=== PATIENT | female | born 1945 | race American Indian/Alaskan Native ===

== ENCOUNTER 2018-07-08 14:25 | Inpatient (IN) | payer MEDICARE, BC ==
[2018-07-08 14:34] VITALS: BMI 36.3
--- NOTE | 2018-07-08 15:11 | ED PDOC ---
Arrival/HPI <Tracy Truong - Last Filed: 07/08/18 16:56> - History of Present Illness Narrative History of Present Illness (Text): 07/08/18 15:41 73 y/o F with PMHx of HTN, pre-DM, lumbar degeneration presents to ED with complaints of L facial weakness, L lip numbness and associated L toe tingling that has been persistent since 2 days ago. She reports she was at home when she noticed a pinching in her L breast and subsequent facial involvement. She did not visit any ED or doctor when she noticed the symptoms. She reports she presented to ED today as she noticed L numbness had not improved, and she was drooling from the L side of her mouth when washing her mouth. She reports she hit her head on a cabinet about 4 days ago when standing, but denies any falls or other trauma to her head. She denies LOC. She denies taking any blood thinners. She took a baby aspirin this am. She denies fevers, chills, headache, dizziness, syncope, chest pain, palpitations, SOB, n/v/c/d/dysuria. Cardio: Dr. Carlin PMD: Dr. Ling Time/Duration: Prior to Arrival Symptom Onset: Gradual Symptom Course: Unchanged <Michelle Lu - Last Filed: 07/10/18 13:22> - General Chief Complaint: Weakness/Neurological Deficit Past Medical History - Provider Review Nursing Documentation Reviewed: Yes - Infectious Disease Hx of Infectious Diseases: None - Reproductive Menopause: Yes - Cardiac Hx Hypertension: Yes - Pulmonary Hx Respiratory Disorders: No - Neurological Hx Neurological Disorder: No - HEENT Hx HEENT Disorder: Yes Hx Glaucoma: Yes (MILD IN LEFT EYE) - Renal Hx Renal Disorder: No - Endocrine/Metabolic Hx Endocrine Disorders: No - Hematological/Oncological Hx Blood Disorders: No - Integumentary Hx Dermatological Disorder: No - Musculoskeletal/Rheumatological Hx Musculoskeletal Disorders: Yes (PLANTAR FASCITIS) - Gastrointestinal Hx Gastrointestinal Disorders: Yes - Genitourinary/Gynecological Hx Genitourinary Disorders: No - Psychiatric Hx Psychophysiologic Disorder: No Hx Substance Use: No - Anesthesia Hx Anesthesia: Yes Hx Anesthesia Reactions: No Hx Malignant Hyperthermia: No <Michelle Lu - Last Filed: 07/10/18 13:22> Family/Social History - Physician Review Nursing Documentation Reviewed: Yes Family/Social History: Unknown Family HX Smoking Status: Former Smoker Hx Alcohol Use: No Hx Substance Use: No <Michelle Lu - Last Filed: 07/10/18 13:22> Allergies/Home Meds <Tracy Truong - Last Filed: 07/08/18 16:56> <Michelle Lu - Last Filed: 07/10/18 13:22> Allergies/Adverse Reactions: Allergies No Known Allergies Allergy (Verified 12/09/14 11:14) Home Medications: Home Meds Medication Instructions Recorded Confirmed Aspirin [Aspirin Chewable] 81 mg PO DAILY 12/09/14 07/08/18 Lisinopril [Zestril] 20 mg PO DAILY 07/08/18 07/08/18 hydroCHLOROthiazide [Microzide] 50 mg PO DAILY 07/08/18 07/08/18 Review of Systems - Review of Systems Constitutional: Normal Eyes: Normal ENT: Normal Respiratory: Normal Cardiovascular: Normal Gastrointestinal: Normal Genitourinary Female: Normal Musculoskeletal: Normal Skin: Normal Neurological: Facial Droop. absent: Headache, Dizziness Endocrine: Normal Hemo/Lymphatic: Normal Psychiatric: Normal <Michelle Lu - Last Filed: 07/10/18 13:22> Physical Exam Vital Signs Temp Pulse Resp BP Pulse Ox 07/08/18 14:25 98.7 F 64 18 153/77 H 98 <Tracy Truong - Last Filed: 07/08/18 16:56> Vital Signs Reviewed: Yes Vital Signs Temp Pulse Resp BP Pulse Ox 07/08/18 14:25 98.7 F 64 18 153/77 H 98 Temperature: Afebrile Blood Pressure: Hypertensive Pulse: Regular Respiratory Rate: Normal Appearance: Positive for: Well-Appearing, Non-Toxic, Comfortable Pain Distress: None Mental Status: Positive for: Alert and Oriented X 3 - Systems Exam Head: Present: Atraumatic, Normocephalic Pupils: Present: PERRL Extroacular Muscles: Present: EOMI Conjunctiva: Present: Normal Mouth: Present: Moist Mucous Membranes Neck: Present: Normal Range of Motion Respiratory/Chest: Present: Clear to Auscultation, Good Air Exchange. No: Respiratory Distress, Accessory Muscle Use Cardiovascular: Present: Regular Rate and Rhythm, Normal S1, S2. No: Murmurs Abdomen: No: Tenderness, Distention, Peritoneal Signs Back: Present: Normal Inspection Upper Extremity: Present: Normal Inspection. No: Cyanosis, Edema Lower Extremity: Present: Normal Inspection. No: Edema Neurological: Present: GCS=15, Speech Normal, Motor Func Grossly Intact, Normal Cerebellar Funct, Other (NIHSS Score: 1. L lip weakness) Skin: Present: Warm, Dry, Normal Color. No: Rashes Psychiatric: Present: Alert, Oriented x 3, Normal Insight, Normal Concentration <Michelle Lu - Last Filed: 07/10/18 13:22> Medical Decision Making ED Course and Treatment: 07/08/18 16:14 Impression: 73 year old female presents to emergency department with complaints of L facial weakness, L lip numbness and associated L toe tingling that has been persistent since 2 days ago. In agreement with resident note which contains more details about the patient. Patient seen and evaluated with resident. Came up with plan and treatment together. Plan: -- CT Head -- EKG -- Labs -- Chest X-ray -- Ecotrin -- Urinalysis 07/08/18 16:56 Chest X-ray, reviewed by radiologist: IMPRESSION: No active disease. CT Head, reviewed by radiologist: IMPRESSION: No acute intracranial abnormalities. No significant findings to account for the clinical presentation. - Lab Interpretations Lab Results: PT 13.6 SECONDS (9.4-12.5) H 07/08/18 15:10 INR 1.19 07/08/18 15:10 APTT 31.4 Seconds (25.1-36.5) 07/08/18 15:10 Troponin I < 0.01 ng/mL 07/08/18 15:10 Total Bilirubin 0.5 mg/dL (0.2-1.3) 07/08/18 15:10 AST 29 U/L (14-36) 07/08/18 15:10 ALT 29 U/L (7-56) 07/08/18 15:10 Alkaline Phosphatase 82 U/L (38-126) 07/08/18 15:10 Total Protein 8.5 g/dL (5.8-8.3) H 07/08/18 15:10 Albumin 4.3 g/dL (3.0-4.8) 07/08/18 15:10 Globulin 4.2 gm/dL 07/08/18 15:10 Albumin/Globulin Ratio 1.0 (1.1-1.8) L 07/08/18 15:10 - RAD Interpretation Radiology Orders: 07/08/18 15:05 HEAD W/O CONTRAST [CT] Stat 07/08/18 15:07 CHEST PORTABLE [RAD] Stat - Medication Orders Current Medication Orders: Discontinued Medications Aspirin (Ecotrin) 162 mg PO STAT STA Stop: 07/08/18 16:09 <Tracy Truong - Last Filed: 07/08/18 16:56> ED Course and Treatment: 07/08/18 16:05 Impression: 73 y/o F with PMHx of HTN, pre-DM, lumbar degeneration presents to ED with complaints of L facial weakness, L lip numbness and associated L toe tingling Prior notes and results have been reviewed Differential diagnosis includes but is not limited to: CVA Plan: Head CT. Rule out hemorrhage Labs EKG U/A. Cultures Chest xray Reassess & disposition Progress Notes: 07/08/18 16:[address] Ling. Will accept to his service. Request Dr. Harrell for neurology consult - RAD Interpretation Radiology Orders: 07/08/18 15:05 HEAD W/O CONTRAST [CT] Stat 07/08/18 15:07 CHEST PORTABLE [RAD] Stat - EKG Interpretation EKG Interpretation (Text): 07/08/18 15:28 Sinus rhythm w/ marked sinus arrhythmia Possible L atrial enlargement LAD LVH Nonspecific T wave abnormality HR: 61 bpm QTc: 414ms <Michelle Lu - Last Filed: 07/10/18 13:22> - PA / SIGNAL TIMER / Resident Statement MICHAEL has reviewed & agrees with the documentation as recorded. / has examined the patient and agrees with the treatment plan. - Scribe Statement The provider has reviewed the documentation as recorded by the Scribe Bhaskar Garzon All medical record entries made by the Scribe were at my direction and persona lly dictated by me. I have reviewed the chart and agree that the record accurately reflects my personal performance of the history, physical exam, medical decision making, and the department course for this patient. I have also personally directed, reviewed, and agree with the discharge instructions and disposition. <Tracy Truong - Last Filed: 07/08/18 16:56> Disposition/Present on Arrival <Tracy Truong - Last Filed: 07/08/18 16:56> - Present on Arrival Any Indicators Present on Arrival: No History of DVT/PE: No History of Uncontrolled Diabetes: No Urinary Catheter: No History of Decub. Ulcer: No History Surgical Site Infection Following: None - Disposition Have Diagnosis and Disposition been Completed?: Yes Disposition Time: 16:30 <Michelle Lu - Last Filed: 07/10/18 13:22> - Disposition Diagnosis: CVA (cerebral vascular accident), Facial weakness Disposition: HOSPITALIZED Patient Problems: Current Active Problems Problem Status Onset CVA (cerebral vascular accident) Acute Facial weakness Acute Condition: FAIR
[2018-07-08 15:24] LABS: BASO # 0.02 K/mm3 (0.0-2.0); BASO % 0.2 % (0.0-3.0); EOS # 0.3 (0.0-0.7); EOS % 2.8 % (1.5-5.0); GRAN # 5.13 (1.4-6.5); GRAN % 56.9 % (50.0-68.0); HEMOGLOBIN 13.6 g/dL (12.0-16.0); LYMPH % 32.7 % (22.0-35.0); MEAN CELL VOLUME 84.8 fl (80.0-105.0); MEAN CORPUSCULAR HEMOGLOBIN 27.3 pg (25.0-35.0); MEAN CORPUSCULAR HGB CONC 32.2 g/dl (31.0-37.0); MEAN PLATELET VOLUME 10.4 fl (7.0-11.0); MONO # 0.7 (0.1-0.6); MONO % 7.4 % (1.0-6.0); RBC 4.99 10^6/uL (3.5-6.1); RED CELL DISTRIBUTION WIDTH 14.2 % (11.5-14.5)
[2018-07-08 15:34] LABS: INR 1.19; PARTIAL THROMBOPLASTIN TIME 31.4 Seconds (25.1-36.5); PROTHROMBIN TIME 13.6 SECONDS (9.4-12.5)
[2018-07-08 15:36] LABS: ALBUMIN 4.3 g/dL (3.0-4.8); ALT/SGPT 29 U/L (7-56); AST/SGOT 29 U/L (14-36); BLOOD UREA NITROGEN 29 mg/dL (7-21); CALCIUM 9.8 mg/dL (8.4-10.5); GFR NON-AFRICAN AMERICAN > 60
[2018-07-08 15:47] LABS: TROPONIN I < 0.01 ng/mL
--- NOTE | 2018-07-08 16:05 | CT ---
Date of service: 07/08/2018 PROCEDURE: CT HEAD WITHOUT CONTRAST. HISTORY: left side facial weakness COMPARISON: None available. TECHNIQUE: Axial computed tomography images were obtained through the head/brain without intravenous contrast. Supplemental Coronal and Sagittal projections created and reviewed. Radiation dose: Total exam DLP = 865.30 mGy-cm. This CT exam was performed using one or more of the following dose reduction techniques: Automated exposure control, adjustment of the mA and/or kV according to patient size, and/or use of iterative reconstruction technique. FINDINGS: HEMORRHAGE: No intracranial hemorrhage. BRAIN: No mass effect or edema. No atrophy or chronic microvascular ischemic changes. VENTRICLES: Unremarkable. No hydrocephalus. CALVARIUM: Unremarkable. PARANASAL SINUSES: Unremarkable as visualized. No significant inflammatory changes. MASTOID AIR CELLS: Unremarkable as visualized. No inflammatory changes. OTHER FINDINGS: None. IMPRESSION: No acute intracranial abnormalities. No significant findings to account for the clinical presentation.
--- NOTE | 2018-07-08 16:07 | RAD ---
Date of service: 07/08/2018 HISTORY: left side facial weakness COMPARISON: No prior. FINDINGS: LUNGS: No active pulmonary disease. PLEURA: No significant pleural effusion identified, no pneumothorax apparent. CARDIOVASCULAR: Atherosclerotic calcification present No radiographic findings to suggest acute or significant cardiovascular disease. OSSEOUS STRUCTURES: No significant abnormalities. VISUALIZED UPPER ABDOMEN: Normal. OTHER FINDINGS: None. IMPRESSION: No active disease.
[2018-07-08 19:02] LABS: PH,URINE 6.5 (4.7-8.0); URINE BILIRUBIN NEGATIVE (NEGATIVE); URINE BLOOD NEGATIVE (NEGATIVE); URINE GLUCOSE (UA) NEGATIVE (NEGATIVE); URINE LEUKOCYTE ESTERASE NEGATIVE Leu/uL (NEGATIVE); URINE PROTEIN NEGATIVE mg/dL (<30 mg/dL); URINE UROBILINOGEN 0.2 E.U./dL (<1 E.U./dL)
[2018-07-08 19:09] LABS: URINE APPEARANCE CLEAR (CLEAR); URINE COLOR YELLOW (YELLOW)
[2018-07-08 19:48] LABS: BARBITURATES, UR NEGATIVE (NEGATIVE); BENZODIAZEPINES, UR NEGATIVE (NEGATIVE); OPIATES, UR NEGATIVE (NEGATIVE); PHENCYCLIDINE, UR NEGATIVE (NEGATIVE)
[2018-07-08] MEDS ORDERED: Influenza Vaccine 60 mcg/0.5 mL SYR (4YR UP) IM ONE (21:29)
[2018-07-08] MEDS ORDERED: Pneumococcal 23-Valent Vaccine IM ONE (21:29)
[2018-07-09 06:46] LABS: HEMOGLOBIN 13.7 g/dL (12.0-16.0); MEAN CELL VOLUME 84.2 fl (80.0-105.0); MEAN CORPUSCULAR HGB CONC 32.1 g/dl (31.0-37.0); MEAN PLATELET VOLUME 10.3 fl (7.0-11.0); RBC 5.07 10^6/uL (3.5-6.1); RED CELL DISTRIBUTION WIDTH 14.2 % (11.5-14.5); WHITE BLOOD COUNT 7.9 10^3/uL (4.5-11.0)
[2018-07-09 07:41] LABS: ALB/GLOB RATIO 0.9 (1.1-1.8); ALBUMIN 3.9 g/dL (3.0-4.8); ALT/SGPT 26 U/L (7-56); AST/SGOT 27 U/L (14-36); BLOOD UREA NITROGEN 22 mg/dL (7-21); CALCIUM 9.5 mg/dL (8.4-10.5); GFR NON-AFRICAN AMERICAN > 60
--- NOTE | 2018-07-09 10:16 | CP.PCM.CON ---
History of Present Illness - History of Present Illness History of Present Illness: Awake, alert,no distress Reason for consultation: Cardiac evaluation of left chest pinching discomfort, left side face numbness especially lip side Brief history of present illness:A 73 year old female known to Dr. Carlin who came in to the ER due to complaints of left chest pinching sensation/discomfort for few seconds followed by numbness left side of face especially left side of lips unable to move and noticed asymmetry started 2 days ago. Tried to drink and noticed drooling on the left side of mouth. She reports she hit her head on a cabinet about 4 days ago when standing, but denies any falls or other trauma to her head. Denies changed in level of consciousness. History of hypertension, glaucoma,plantar fascitis, former smoker. Seen and examined by me and Dr. Carlin Review of Systems - Review of Systems All systems: reviewed and no additional remarkable complaints except Review of Systems: as per HPI Past Patient History - Infectious Disease Hx of Infectious Diseases: None - Past Medical History & Family History Past Medical History?: Yes - Past Social History Smoking Status: Former Smoker - CARDIAC Hx Hypertension: Yes Hx Peripheral Edema: Yes (+1 ble edema,outer b/l anklessoft protrusions) Hx Peripheral Vascular Disease: Yes - PULMONARY Hx Respiratory Disorders: No - NEUROLOGICAL Hx Neurological Disorder: Yes Other/Comment: left leg "falls asleep on and off x 1 month - HEENT Hx HEENT Problems: Yes (eyeglasses) Hx Glaucoma: Yes (MILD IN LEFT EYE/no drops at present time) - RENAL Hx Chronic Kidney Disease: No - ENDOCRINE/METABOLIC Hx Endocrine Disorders: Yes Other/Comment: pre diabetes diet controlled has periodic bloodwork last a1c 6.7 - HEMATOLOGICAL/ONCOLOGICAL Hx Blood Disorders: No - INTEGUMENTARY Hx Dermatological Problems: No - MUSCULOSKELETAL/RHEUMATOLOGICAL Hx Falls: Yes (in the snow age 64 fx L5) - GASTROINTESTINAL Hx Gastrointestinal Disorders: Yes (obese) Other/Comment: colon polyps removed - GENITOURINARY/GYNECOLOGICAL Hx Genitourinary Disorders: No - PSYCHIATRIC Hx Substance Use: No - SURGICAL HISTORY Hx Surgeries: Yes (REMOVAL OF FIBROID IN UTERUS) - ANESTHESIA Hx Anesthesia: Yes Hx Anesthesia Reactions: No Hx Malignant Hyperthermia: No Meds Allergies/Adverse Reactions: Allergies Allergy/AdvReac Type Severity Reaction Status Date / Time No Known Allergies Allergy Verified 12/09/14 11:14 - Medications Medications: Current Medications Aspirin (Aspirin Chewable) 81 mg PO DAILY [facility] Last Admin: 07/09/18 09:47 Dose: 81 mg Hydrochlorothiazide (Hydrodiuril) 25 mg PO DAILY [facility] Last Admin: 07/09/18 09:48 Dose: 25 mg Lisinopril (Zestril) 20 mg PO DAILY [facility] Last Admin: 07/09/18 09:47 Dose: 20 mg Physical Exam - Constitutional Appears: Non-toxic, No Acute Distress - Head Exam Head Exam: NORMAL INSPECTION, NORMOCEPHALIC - Eye Exam Eye Exam: Normal appearance Pupil Exam: NORMAL ACCOMODATION - ENT Exam ENT Exam: Mucous Membranes Moist, Normal Exam - Respiratory Exam Respiratory Exam: Clear to Auscultation Bilateral, NORMAL BREATHING PATTERN - Cardiovascular Exam Cardiovascular Exam: +S1, +S2 - GI/Abdominal Exam GI & Abdominal Exam: Normal Bowel Sounds, Soft - Extremities Exam Extremities exam: Positive for: full ROM - Neurological Exam Neurological exam: Alert, Oriented x3 Additional comments: slight facial droop on left side - Psychiatric Exam Psychiatric exam: Normal Affect, Normal Mood - Skin Skin Exam: Dry, Normal Color, Warm Results - Vital Signs Recent Vital Signs: Last Vital Signs Temp 98.1 F 07/09/18 05:45 Pulse 65 07/09/18 09:47 Resp 20 07/09/18 05:45 BP 137/82 07/09/18 09:47 Pulse Ox 97 07/09/18 05:45 - Labs Result Diagrams: 07/09/18 06:00 07/09/18 06:00 Labs: Laboratory Results - last 24 hr 07/08/18 07/08/18 07/08/18 15:10 15:10 15:10 WBC 9.0 RBC 4.99 Hgb 13.6 Hct 42.3 MCV 84.8 MCH 27.3 MCHC 32.2 RDW 14.2 Plt Count 191 MPV 10.4 Gran % 56.9 Lymph % (Auto) 32.7 [place] % (Auto) 7.4 H Eos % (Auto) 2.8 Baso % (Auto) 0.2 Gran # 5.13 Lymph # (Auto) 3.0 [place] # (Auto) 0.7 H Eos # (Auto) 0.3 Baso # (Auto) 0.02 PT 13.6 H INR 1.19 APTT 31.4 Sodium 142 Potassium 3.6 Chloride 102 Carbon Dioxide 35 H Anion Gap 9 L BUN 29 H Creatinine 0.8 Est GFR ( Amer) > 60 Est GFR (Non-Af Amer) > 60 Random Glucose 104 Calcium 9.8 Phosphorus 3.8 Magnesium 1.9 Total Bilirubin 0.5 AST 29 ALT 29 Alkaline Phosphatase 82 Lactate Dehydrogenase 528 Total Creatine Kinase 35 Troponin I < 0.01 Total Protein 8.5 H Albumin 4.3 Globulin 4.2 Albumin/Globulin Ratio 1.0 L Urine Color Urine Appearance Urine pH Ur Specific [place] Urine Protein Urine Glucose (UA) Urine Ketones Urine Blood Urine Nitrate Urine Bilirubin Urine Urobilinogen Ur Leukocyte Esterase Urine Opiates Screen Urine Methadone Screen Ur Barbiturates Screen Ur Phencyclidine Scrn Ur Amphetamines Screen U Benzodiazepines Scrn U Oth Cocaine Metabols U Cannabinoids Screen Alcohol, Quantitative 07/08/18 07/08/18 07/08/18 15:10 18:30 18:30 WBC RBC Hgb Hct MCV MCH MCHC RDW Plt Count MPV Gran % Lymph % (Auto) [place] % (Auto) Eos % (Auto) Baso % (Auto) Gran # Lymph # (Auto) [place] # (Auto) Eos # (Auto) Baso # (Auto) PT INR APTT Sodium Potassium Chloride Carbon Dioxide Anion Gap BUN Creatinine Est GFR ( Amer) Est GFR (Non-Af Amer) Random Glucose Calcium Phosphorus Magnesium Total Bilirubin AST ALT Alkaline Phosphatase Lactate Dehydrogenase Total Creatine Kinase Troponin I Total Protein Albumin Globulin Albumin/Globulin Ratio Urine Color Yellow Urine Appearance Clear Urine pH 6.5 Ur Specific [place] 1.020 Urine Protein Negative Urine Glucose (UA) Negative Urine Ketones Negative Urine Blood Negative Urine Nitrate Negative Urine Bilirubin Negative Urine Urobilinogen 0.2 Ur Leukocyte Esterase Negative Urine Opiates Screen Negative Urine Methadone Screen Negative Ur Barbiturates Screen Negative Ur Phencyclidine Scrn Negative Ur Amphetamines Screen Negative U Benzodiazepines Scrn Negative U Oth Cocaine Metabols Negative U Cannabinoids Screen Negative Alcohol, Quantitative < 10 07/09/18 07/09/18 06:00 06:00 WBC 7.9 RBC 5.07 Hgb 13.7 Hct 42.7 MCV 84.2 MCH 27.0 MCHC 32.1 RDW 14.2 Plt Count 179 MPV 10.3 Gran % Lymph % (Auto) [place] % (Auto) Eos % (Auto) Baso % (Auto) Gran # Lymph # (Auto) [place] # (Auto) Eos # (Auto) Baso # (Auto) PT INR APTT Sodium 143 Potassium 3.2 L Chloride 103 Carbon Dioxide 35 H Anion Gap 8 L BUN 22 H Creatinine 0.7 Est GFR ( Amer) > 60 Est GFR (Non-Af Amer) > 60 Random Glucose 91 Calcium 9.5 Phosphorus Magnesium Total Bilirubin 0.7 AST 27 ALT 26 Alkaline Phosphatase 86 Lactate Dehydrogenase Total Creatine Kinase Troponin I Total Protein 7.9 Albumin 3.9 Globulin 4.1 Albumin/Globulin Ratio 0.9 L Urine Color Urine Appearance Urine pH Ur Specific [place] Urine Protein Urine Glucose (UA) Urine Ketones Urine Blood Urine Nitrate Urine Bilirubin Urine Urobilinogen Ur Leukocyte Esterase Urine Opiates Screen Urine Methadone Screen Ur Barbiturates Screen Ur Phencyclidine Scrn Ur Amphetamines Screen U Benzodiazepines Scrn U Oth Cocaine Metabols U Cannabinoids Screen Alcohol, Quantitative Assessment & Plan - Assessment and Plan (Free Text) Assessment: Brief history of present illness:A 73 year old female known to Dr. Carlin who came in to the ER due to complaints of left chest pinching sensation/discomfort for few seconds followed by numbness left side of face especially left side of lips unable to move and noticed asymmetry started 2 days ago. Tried to drink and noticed drooling on the left side of mouth. She reports she hit her head on a cabinet about 4 days ago when standing, but denies any falls or other trauma to her head. Denies changed in level of consciousness. History of hypertension, severe disk degeneration at L5 to S1 without stenosis, glaucoma,plantar fascitis, former smoker. CT of head, negative for bleeding, Chest X ray- unremarkable. Troponin -normal, MRI of brain done awaiting result to rule out CVA. No distress. Stress test on 12/09/14 showed normal. No other cardiac work up done at [facility]. Will order echo. Will order carotid ultrasound. Plan: Denies chest pain, denies shortness of breath Heart rate controlled Blood pressure controlled On ASA 81 mg daily,Hydrodiuril 25 mg daily, Lisinopril 20 mg daily Echo to evaluate LV function Carotid ultrasound TSH,lipid panel, HgbA1C level Continue current treatment Continue current medications Further recommendations during hospital course Will follow up Plan and treatment discussed with Dr. Carlin Thank you Dr. Mina for the opportunity of taking care of Ramonita Javier - Date & Time Date: 07/09/18 Time: 06:10
--- NOTE | 2018-07-09 11:42 | MRI ---
Date of service: 07/08/2018 PROCEDURE: MRI BRAIN WITHOUT CONTRAST HISTORY: r/o cva COMPARISON: Noncontrast head CT from 07/08/2018. TECHNIQUE: Multiplanar, multisequence MR images of the brain were obtained without intravenous contrast enhancement. FINDINGS: HEMORRHAGE: None DWI: No evidence of an acute or early subacute infarction. BRAIN PARENCHYMA: There are mild chronic microangiopathic changes. There is no mass, mass effect or abnormal extra-axial fluid collection. There is no territorial infarction. There is mild cerebellar tonsillar ectopia, otherwise the midline sagittal structures are normal. VENTRICLES: There is mild age-related global parenchymal volume loss and proportionate enlargement of the ventricles and cortical sulci. There is a cavum septum pellucidum. CRANIUM: There is normal bone marrow signal pattern. ORBITS: Grossly unremarkable. PARANASAL SINUSES/MASTOIDS: Predominantly clear. VASCULAR SYSTEM: There are normal signal voids in the larger intracranial arteries. OTHER FINDINGS: None. IMPRESSION: No acute intracranial abnormality. Mild chronic microangiopathic changes and mild age-related global parenchymal volume loss.
--- NOTE | 2018-07-09 14:10 | CON ---
DATE: 07/09/2018 LOCATION: The patient in room 261, bed 2. REASON FOR CONSULTATION: Cardiac evaluation for pinching type chest pain, hypertension, and possible CVA. HISTORY OF PRESENT ILLNESS: A 73-year-old known hypertensive admitted with pinching type of pain for the second and followed by numbness of the left side of the face and unable to move the lip and notice asymmetry on the right angle of the mouth and if he takes liquid, it is in the it causes drooling on the left side of the mouth. Detailed consult has been already done by Shannan Barron, so this is an additional note on the consult. The patient is put on aspirin 25 mg daily, lisinopril 20 mg daily. Echo to evaluate LV function and see there is no thrombus or plaque. Carotid ultrasound, TSH, lipid panel and we will follow with you. Jessie Carlin MD
--- NOTE | 2018-07-09 20:39 | CON ---
DATE: 07/09/2018 HISTORY OF PRESENT ILLNESS: This is a 73-year-old black female with a past medical history of hypertension, prediabetic, and low back came with the complain of left facial weakness and also tingling of the left toes and came to the hospital because she was seeing the fluid from the mouth was driveling from the left side of the face and symptoms started about 2 to 3 days ago, so came here yesterday. No further workup. PAST MEDICAL HISTORY: As above. SOCIAL HISTORY: Does not smoke and does not drink, ALLERGIES: NO KNOWN DRUG ALLERGIES. HOME MEDICATIONS: Hydrochlorothiazide, lisinopril, and aspirin. PHYSICAL EXAMINATION: VITAL SIGNS: Blood pressure 153/77. HEENT: Normocephalic and atraumatic. NECK: Supple. NEUROLOGIC: Awake and oriented to self and place. Cranial nerve II through XII were tested. Pupils are reactive. Left facial asymmetric. Tongue midline. MOTOR: Moves all the extremities. Spontaneous movement of the extremities noted. Deep tendon reflexes 1+. Plantars are downgoing. Sensory appears intact. Cerebellar gait deferred. I spoke to Dr. Roy and discussed the case. 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 MRI of the head was done which was reported negative. Continue present management. I showed her exercises of the left side of the face. We will follow up. David Harrell MD
--- NOTE | 2018-07-09 21:46 | HP ---
HISTORY OF PRESENT ILLNESS: The patient is a 73-year-old woman with a past medical history of hypertension who presented for evaluation of a 2 day history of left-sided facial droop and numbness. The patient reports that approximately 2 weeks ago she developed URI type symptoms which resolved spontaneously. Approximately 2 days prior to presentation to the ED she developed a left chest wall "pinching sensation" which lasted for several seconds and resolved spontaneously. She also reported associated left-sided facial droop and paresthesias to her lips and tongue. Given her concern for possible CVA, she opted for ED evaluation. Examination in the ED found her to be afebrile and hemodynamically stable but with persistent left-sided facial droop. No other neurological deficits were noted. She underwent a CT of the head which was negative for intracranial hemorrhage and was subsequently admitted to the telemetry [place] for continued workup. PAST MEDICAL HISTORY: As per HPI. PAST SURGICAL HISTORY: Surgical resection of uterine fibroids. ALLERGIES: NKDA. MEDICATIONS: Hydrochlorothiazide 25 mg p.o. daily, Lisinopril 20 mg p.o. daily and Aspirin 81 mg p.o. daily. FAMILY HISTORY: Noncontributory. SOCIAL HISTORY: The patient reports a former smoking history but quit several years ago. She reports social alcohol use and denies illicit drug abuse. REVIEW OF SYSTEMS: A 12-point review of systems is negative except as per HPI. PHYSICAL EXAMINATION: VITAL SIGNS: Temperature 97, pulse 78, blood pressure 133/66, respiratory rate 20, oxygen saturation 100% on room air. GENERAL: Nontoxic elderly woman lying in bed in no apparent distress. HEENT: PERRL, EOMI. No scleral icterus. No conjunctival pallor. NECK: No JVD. No bruits. CARDIOVASCULAR: Regular rate and rhythm. Normal S1, S2. LUNGS: Clear to auscultation. ABDOMEN: Normoactive bowel sounds. Soft, nontender, nondistended. EXTREMITIES: No edema. NEUROLOGIC: Awake, alert and oriented x 3. Left-sided facial droop is noted. Decreased sensation to fine touch over left maxilla. Motor 5/5 in all extremities. LABORATORY DATA: WBC 7.9, hemoglobin 13.7, hematocrit 43, platelets 179. Sodium 143, potassium 3.2, chloride 103, bicarb 35, BUN 22, creatinine 0.7, glucose 91. Troponin less than 0.01. IMAGING STUDIES: 1. Chest x-ray demonstrated no active disease. 2. CT of the head without contrast demonstrated no acute intracranial pathology. 3. MRI of the brain without contrast demonstrated mild chronic microangiopathic changes and age-related global loss but no acute intracranial abnormalities. ASSESSMENT: The patient is a 73-year-old woman with a past medical history of hypertension who presented with a 2 day history of left-sided facial weakness and was admitted to rule out cerebrovascular accident. PLAN: 1. 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 Neurological evaluation with Dr. Harrell is pending. Neuroimaging studies reviewed and negative for CVA. An echocardiogram and carotid ultrasound has been ordered by Dr. Carlin and we will await the results. 2. Hypertension. Blood pressure controlled. Resume Lisinopril 20 mg p.o. daily and HCTZ 25 mg p.o. daily. 3. Prophylaxis. GI prophylaxis not indicated as the patient is eating. Continue with SCDs for DVT prophylaxis. CODE STATUS: Full code. George Mina MD MTDLi
--- NOTE | 2018-07-09 22:22 | CARD ---
APPROVED REPORT Date of service: 07/08/2018 EKG Measurement Heart [id number] <Conclusion> Sinus rhythm with marked sinus arrhythmia Possible Left atrial enlargement Left axis deviation Left ventricular hypertrophy Nonspecific T wave abnormality Abnormal ECG
[2018-07-10 05:47] VITALS: RESP 18; TEMP 98.1; O2SAT 97
[2018-07-10 06:57] LABS: HDL CHOLESTEROL 59 mg/dL (29-60)
[2018-07-10 07:08] LABS: LDL CHOLESTEROL 40 mg/dL (0-129)
[2018-07-10] MEDS ORDERED: Potassium Chloride 20 mEq ER Tab PO ONE ×2 (07:52→15:00)
[2018-07-10 08:27] LABS: HEMOGLOBIN 13.7 g/dL (12.0-16.0); MEAN CORPUSCULAR HEMOGLOBIN 27.1 pg (25.0-35.0); MEAN CORPUSCULAR HGB CONC 32.3 g/dl (31.0-37.0); MEAN PLATELET VOLUME 11.1 fl (7.0-11.0); RBC 5.05 10^6/uL (3.5-6.1); RED CELL DISTRIBUTION WIDTH 14.3 % (11.5-14.5); WHITE BLOOD COUNT 7.7 10^3/uL (4.5-11.0)
[2018-07-10 08:32] LABS: ALBUMIN 3.9 g/dL (3.0-4.8); ALT/SGPT 32 U/L (7-56); AST/SGOT 31 U/L (14-36); BLOOD UREA NITROGEN 27 mg/dL (7-21); CALCIUM 9.6 mg/dL (8.4-10.5); GFR NON-AFRICAN AMERICAN > 60
--- NOTE | 2018-07-10 08:46 | PN ---
SUBJECTIVE: The patient was seen and examined at bedside on the telemetry [place]. No acute events overnight. She remains afebrile and hemodynamically stable. This morning she feels okay and offers no new complaints. OBJECTIVE: VITAL SIGNS: Temperature 98.1, pulse 62, blood pressure 153/79, respiratory rate 18, oxygen saturation 97% on room air. GENERAL: No apparent distress. HEENT: PERRL, EOMI. No scleral icterus. No conjunctival pallor. NECK: No JVD, no bruits. LUNGS: Clear to auscultation. CARDIOVASCULAR: Regular rate and rhythm. Normal S1, S2. ABDOMEN: Normoactive bowel sounds. Soft, nontender, nondistended. EXTREMITIES: No edema. NEUROLOGIC: Awake, alert and oriented x 3. Left-sided facial droop persists with decreased sensation to fine touch over left maxilla. Motor 5/5 in all extremities. LABORATORY DATA: Morning labs are pending. ASSESSMENT: The patient is a 73-year-old woman with a past medical history of hypertension who presented with a 2 day history of left-sided facial weakness. PLAN: 1. 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 Input from Dr. Harrell greatly appreciated. Neuroimaging reviewed and unremarkable. The patient has been started on Solu-Medrol 4 mg p.o. daily and has been counseled on facial exercises as per Dr. Harrell. Input from speech and swallow pathology appreciated. 2. Hypertension. Continue Lisinopril 20 mg p.o. daily and HCTZ 25 mg p.o. daily. 3. Prophylaxis. GI prophylaxis not indicated as the patient is eating. Continue with SCDs for DVT prophylaxis. CODE STATUS: Full code. George Mina MD MTDD
[2018-07-10 09:58] VITALS: BP 113/61
--- NOTE | 2018-07-10 11:40 | US ---
PROCEDURE: Bilateral carotid artery duplex ultrasound HISTORY: Carotid stenosis CVA PHYSICIAN(S): Deshawn Velazquez MD. TECHNIQUE: Duplex sonography and color-flow Doppler were used to evaluate the carotid bifurcations and limited segments of the vertebral arteries bilaterally. The exam is somewhat limited by tortuous vessels. FINDINGS: There is mild smooth hypoechoic plaque noted at the carotid bifurcations bilaterally. The peak systolic velocity in the proximal right internal carotid artery is 72 cm/sec. This corresponds to a 20 to 39% proximal right ICA stenosis. Normal systolic velocities are noted in the proximal right external carotid artery. There is antegrade flow in the right vertebral artery. The peak systolic velocity in the proximal left internal carotid artery is 70 cm/sec. This corresponds to a 20 to 39% proximal left ICA stenosis. Normal systolic velocities are noted in the proximal left external carotid artery. There is antegrade flow in the left vertebral artery. IMPRESSION: 1. Bilateral 20-39% proximal ICA stenoses. 2. Antegrade flow in both vertebral arteries.
--- NOTE | 2018-07-10 16:28 | PN ---
DATE: 07/10/2018 NEUROLOGY FOLLOWUP CHIEF COMPLAINT: Left facial numbness and palsy. SUBJECTIVE: The patient was seen and examined at bedside. No acute events overnight. She still remains afebrile, hemodynamically stable. Offers no acute complaints, had some left side numbness. She will obtain outpatient facial muscle therapy exercise for underlying left Martinez's palsy. MRI of the brain showed no acute intracranial abnormalities. PAST MEDICAL HISTORY: History of hypertension. FAMILY HISTORY: Noncontributory. MEDICATION: Reviewed by nurse's reconciliation sheet. ALLERGIES: NO KNOWN DRUG ALLERGIES. REVIEW OF SYSTEM: Fourteen-point review of systems is negative except in the HPI. SOCIAL HISTORY: No illicit drug use, smoking, or ETOH abuse. PHYSICAL EXAMINATION: VITAL SIGNS: Temperature 98.1, pulse rate 62, blood pressure 153/79, respirations 18, oxygen saturation 97% on room air. GENERAL: The patient was seen up in bed, in no acute distress. HEENT: Head is atraumatic and normocephalic. PERRLA. Extraocular muscles intact. NECK: Supple. No JVD. No adenopathy noted. LUNGS: Clear to auscultation. No adventitious sounds. HEART: S1 and S2. Normal rate and rhythm. No murmurs, rubs or gallops. ABDOMEN: Soft and nontender. Bowel sounds are present. EXTREMITIES: No clubbing and no cyanosis. Peripheral pulses 2+ felt bilaterally. NEUROLOGIC: The patient is alert and oriented to person, place, month, and year. Speech is fluent without any errors. Cranial nerves II through XII intact except for there is a mild left-side facial droop and difficulty in closing the left eyelid with a Martinez's phenomenon and mild decrease in sensation on the left side over the V2 and V3 distribution. Her motor exam, she moves all extremities equally. Toes are downgoing bilaterally. Sensory exam: Light touch, pinprick, proprioception, and vibration are intact. DTRs are 2+ throughout. LABORATORY DATA: Sodium 142, potassium 3.2, chloride 104, carbon dioxide of 33, BUN of 27, creatinine 0.8, random glucose 104. ASSESSMENT AND PLAN: A 73-year-old woman with a history of hypertension presents with two-day history of left-sided weakness, found to have left-side Martinez's palsy. An MRI of the brain showed no acute intracranial abnormalities. We will discharge her home on Solu-Medrol dose pack as well as facial muscle exercise as an outpatient, and we will follow up as an outpatient. At this time, aspirin 81 mg p.o. daily. Continue with lisinopril and hydrochlorothiazide for hypertension. She is clinically stable from a neuro standpoint. Lucius Harrell MD
[2018-07-10 16:43] VITALS: PULSE 79
--- NOTE | 2018-07-10 17:49 | PN ---
DATE: 07/10/2018 REASON FOR CONSULTATION: Followup atypical chest pain, admitted with left-sided numbness, rule out TIA, rule out CVA. BRIEF CLINICAL HISTORY: The patient denies any chest pain, shortness of breath, any palpitation. PHYSICAL EXAMINATION: GENERAL: Not in apparent distress. VITAL SIGNS: Temperature afebrile. Heart rate is 62, blood pressure 113/61. HEENT: PERRLA. Extraocular muscles are intact. NECK: Supple. No carotid bruit. No thyromegaly. CHEST: Clear to auscultation. HEART: S1 and S2, regular. ABDOMEN: Soft. EXTREMITIES: Clubbing and cyanosis negative. LABORATORY DATA: Blood workup as follows: WBC 7.7, hemoglobin 13.7, hematocrit 42.4, platelet count 189. Chemistry showed sodium 148, potassium 3.0, chloride 104, carbon dioxide 33, anion gap of 9, BUN 26, and creatinine 0.8, troponin 0.01. IMPRESSION: A 73-year-old female with past medical history of hypertension, admitted with numbness of the face, possible transient ischemic attack. So far, brain MRI shows no acute event. The patient had bilateral carotid duplex of stenosis. The patient is going for echocardiogram today. So far, troponin remains negative. No evidence of acute myocardial infarction. Cholesterol shows total 127, LDL 40, HDL 59. RECOMMENDATIONS: Continue aggressive treatment for blood pressure. The patient is on hydrochlorothiazide 25 mg daily and lisinopril 20. Supplement potassium. We will get echo to assess LV function. Further recommendations depends on hospital course. We will follow with you. We will give another 40 K-Dur at 3:00 p.m. because the potassium and the patient is on hydrochlorothiazide. We will get hemoglobin A1c. For risk stratification, consider stress test as outpatient. A 20 mEq was given at morning. We will give 40 mEq at 3:00 p.m. to supplement potassium and ongoing lisinopril and hydrochlorothiazide. We will get echo to assess LV function Further recommendations of the echo if remains stable, we discharge to your liberty. Thank you Dr. Roy for providing us the opportunity in taking care of the patient, Ramonita Javier. Jessie Loaiza MD [facility] # [id number]
--- NOTE | 2018-07-11 10:40 | CARD ---
APPROVED REPORT Date of service: 07/10/2018 EXAM: Two-dimensional and M-mode echocardiogram with Doppler and color Doppler. INDICATION Thrombus 2D DIMENSIONS Left Atrium (2D)4.3 (1.6-4.0cm)IVSd1.1 (0.7-1.1cm) LVDd4.1 (3.9-5.9cm)PWd1.2 (0.7-1.1cm) LVDs3.0 (2.5-4.0cm)FS (%) 26.8 % LVEF (%)52.7 (>50%) M-Mode DIMENSIONS Aortic Root3.00 (2.2-3.7cm)Aortic Cusp Exc.1.40 (1.5-2.0cm) Aortic Valve AoV Peak [id number]/Jenn Peak GR.8mmHg Mitral Valve E/A ratio0.0 TDI E/Lateral E'0.0E/Medial E'0.0 Tricuspid Valve TR Peak [id number] [id number] Peak Gr.24mmHg [id number] LEFT VENTRICLE The left ventricle is normal size. There is mild concentric left ventricular hypertrophy. The left ventricular function is normal. The left ventricular ejection fraction is within the normal range. There is normal LV segmental wall motion. RIGHT VENTRICLE The right ventricle is normal size. The right ventricular systolic function is normal. ATRIA The left atrium is mildly dilated. The right atrium is mildly dilated. The interatrial septum is intact with no evidence for an atrial septal defect. AORTIC VALVE The aortic valve is normal in structure. No aortic regurgitation is present. There is no aortic valvular stenosis. MITRAL VALVE The mitral valve is normal in structure. Mitral regurgitation is mild. TRICUSPID VALVE The tricuspid valve is normal in structure. There is moderate tricuspid regurgitation. PULMONIC VALVE The pulmonary valve is normal in structure. GREAT VESSELS The aortic root is normal in size. The IVC is normal in size and collapses >50% with inspiration. PERICARDIAL EFFUSION There is no pleural effusion. There is no pericardial effusion. <Conclusion> Biatrial enlargement. Normal LV size and systolic function. Mild concentric LVH. Mild MR. Moderate TR. No obvious cardiac source of embolus seen, but if clinical suspicion exists, consider DIMITRY imaging.
--- NOTE | 2018-07-11 19:27 | DS ---
ADMITTING DIAGNOSIS: Left-sided facial weakness r/o CVA. DISCHARGE DIAGNOSIS: Martinez's palsy. SECONDARY DIAGNOSIS: Hypertension. CONSULTATIONS: Dr. Harrell (Neurology) and Dr. Carlin (Cardiology). IMAGING STUDIES: 1. Chest x-ray demonstrated no active disease. 2. CT of the head without contrast demonstrated no acute intracranial pathology. 3. MRI of the brain without contrast demonstrated chronic microangiopathic changes and age-related volume loss, but no acute pathology. DIAGNOSTIC STUDIES: Bilateral carotid artery ultrasound demonstrated no significant stenosis. HISTORY OF PRESENT ILLNESS: The patient is a 73-year-old woman with a past medical history of hypertension who presented for evaluation of a 2 day history of left-sided facial droop and numbness. The patient reports that approximately 2 weeks ago she developed URI type symptoms which resolved spontaneously. Approximately 2 days prior to presentation to the ED she also experienced a left chest wall "pinching sensation" which lasted for several seconds before resolving spontaneously. She also reported associated left-sided facial droop and paresthesias to her lips and tongue. Given her concern for possible CVA, she opted for ED evaluation. Examination in the ED found her to be afebrile and hemodynamically stable but with persistent left-sided facial droop. No other neurological deficits were noted. She underwent a CT of the head which was negative for intracranial hemorrhage and was subsequently admitted to the telemetry [place] for continued workup. HOSPITAL COURSE: Upon admission to the telemetry [place] she was evaluated by Dr. Harrell of Neurology. She underwent an MRI which was negative for CVA. 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 She was started on steroids and counseled on facial exercises by Dr. Harrell. Over the following 24 hours she remained clinically stable and was cleared for discharge from the neurological standpoint. CONDITION: Fair. DISPOSITION: Home. DISCHARGE MEDICATIONS: Lisinopril 20 mg p.o. daily, Hydrochlorothiazide 25 mg p.o. daily, Aspirin 81 mg p.o. daily and Solu-Medrol 4 mg p.o. daily. DISCHARGE INSTRUCTIONS: The patient was advised to perform facial exercises as counseled by Dr. Harrell. She was also advised if she has any worsening of her symptoms to present to her PMD or to the nearest ED immediately. FOLLOWUP: The patient to follow up with her PMD within 1 week of discharge. The patient to follow up with Dr. Harrell as scheduled. George Mina MD KATE
== END 2018-07-10 16:59 | disposition home or self-care (01) | DRG 74 ==
LOC: ED 14:25 → ERH 16:31 → 2RNO 19:17
PROVIDERS: ADMIT Internal Medicine; ATTEND Internal Medicine
DX: G51.0 Bell's palsy (principal); I10 Essential (primary) hypertension; R73.03 Prediabetes; I73.9 Peripheral vascular disease, unspecified; H40.9 Unspecified glaucoma; Z79.82 Long term (current) use of aspirin; Z86.010 Personal history of colon polyps; Z87.891 Personal history of nicotine dependence